=== PATIENT | female | born 1950 | race African-American/Black ===

== ENCOUNTER 2019-10-15 07:24 | Day surgery (SDC) | payer OTHER ==
[2019-10-07 09:28] VITALS: BMI 25.9
--- NOTE | 2019-10-07 11:33 | HP ---
Admitting History and Physical - Primary Care Physician PCP: Tyree Broussard - Admission Chief Complaint: Right breast phylloides tumor History of Present Illness: 69 year old postmenapausal female S/P mutiple breast biopsies and F/H of breast cancer.Screening mammogram showed right upper inner quadrant demnsity and Us showed .6cm mass at 1:00 2 cm FN. Birad 4. US core biopsy right breast 1:00 2018 showed dense nodular stromal fibrosis and calcifications. Addendum showed that this results may not be congruent with the imaging. History Source: Patient Limitations to Obtaining History: No Limitations - Past Medical History Cardiovascular: Yes: HTN Gastrointestinal: Yes: GERD ...: No - Past Surgical History Past Surgical History: Yes: Cholecystectomy (lap 2015), Hysterectomy (due to fibroids at age 41) Additional Past Surgical History: mutiple bilateral breast bxs - Smoking History Smoking history: Current every day smoker Have you smoked in the past 12 months: Yes Aproximately how many cigarettes per day: 10 - Alcohol/Substance Use Hx Alcohol Use: Yes (SOCIALLY) Home Medications - Allergies Allergies/Adverse Reactions: Allergies Allergy/AdvReac Type Severity Reaction Status Date / Time No Known Drug Allergies Allergy Verified 10/07/19 09:18 - Home Medications Home Medications: Ambulatory Orders Hydrochlorothiazide 25 mg PO DAILY 10/07/19 Quinapril HCl [Accupril] 40 mg PO DAILY 10/07/19 Family Medical History Family Hx Cancer: Mother (gastric ca), Father (lung ca46), Brother (prostate ca 60) Other Family History: pat aunt breast ca 55 Physical Examination Constitutional: Yes: Well Nourished, No Distress Breast(s): Yes: Other (diffusely nodular bilaterally no palpable masses or adenopathy bilaterally post bx changes right breast) Problem List - Problems (1) Benign phyllodes tumor of right breast Code(s): D24.1 - BENIGN NEOPLASM OF RIGHT BREAST Assessment/Plan Right breast wide excision with Us localization
[2019-10-15] MEDS ORDERED: MIDAZOLAM HCL 2 MG/2 ML SINGLE DOSE VIAL ONE (11:12)
[2019-10-15] MEDS ORDERED: ONDANSETRON 4 MG/2 ML VIAL ONE ×2 (11:18→12:35)
[2019-10-15] MEDS ORDERED: DEXAMETHASONE SOD PHOSPHATE 4 MG/1 ML VIAL ONE (11:18)
[2019-10-15] MEDS ORDERED: PROPOFOL 20 ML ONE (11:18)
[2019-10-15] MEDS ORDERED: BUPIVACAINE HCL/PF 0.5% (5MG/ML) 10 ML VIAL ONE (11:38)
[2019-10-15] MEDS ORDERED: KETOROLAC TROMETHAMINE 30 MG/1 ML VIAL ONE (12:13)
[2019-10-15] MEDS ORDERED: ONDANSETRON 4 MG/2 ML VIAL IVPUSH PRN (12:19)
[2019-10-15] MEDS ORDERED: KETOROLAC TROMETHAMINE 30 MG/1 ML VIAL IVPUSH PRN (12:19)
[2019-10-15] MEDS ORDERED: oxyCODONE HCL 5 MG TABLET PO PRN ×2 (12:20)
[2019-10-15] MEDS ORDERED: LACTATED RINGERS SOLUTION 1,000 ML IV SCH (12:30)
[2019-10-15] MEDS ORDERED: DEXTROSE 5%-0.45% SALINE 1,000 ML IV SCH (12:30)
[2019-10-15 13:51] VITALS: TEMP 97.5
[2019-10-15] MEDS ORDERED: oxyCODONE HCL 5 MG TABLET ONE (13:55)
[2019-10-15 15:40] VITALS: BP 116/72; PULSE 52
--- NOTE | 2019-10-21 10:50 | PATH ---
Surgical Pathology Report Patient Name: JERONIMO MOORE [facility]. Rec. #: [id number] /Age/Gender: 1950 (Age: 69) / F Account: [id number] Location: [facility] Taken: 10/15/2019 Received: 10/15/2019 Reported: 10/21/2019 Physicians: Tyree Broussard M.D. Specimen(s) Received RIGHT BREAST BIOPSY Clinical History Right breast biopsy Final Diagnosis BREAST, RIGHT, EXCISIONAL, BIOPSY: BENIGN BREAST TISSUE SHOWING FIBROCYSTIC CHANGES INCLUDING PREDOMINANTLY STROMAL FIBROSIS WITH FOCAL CYSTIC APOCRINE METAPLASIA AND USUAL DUCTAL HYPERPLASIA (UDH); FEW CALCIFICATIONS ARE PRESENT IN ASSOCIATION WITH BENIGN GLANDULAR PARENCHYMA. SMALL FIBROADENOMA (7 MM). PRIOR BIOPSY SITE CHANGES ARE PRESENT. Note: See also prior core biopsy from outside institution ([id number];08/07/19, our review ). Electronically Signed Janet Almaraz M.D. Gross Description Received in formalin, labeled "right breast biopsy," is a 5.0 x 3.1 x 3.0 cm. wilkerson-yellow, irregular, portion of fibroadipose tissue with a needle localization wire present. There is an undesignated short suture presumably marking the superior aspect and an undesignated long suture presumably marking the lateral aspect of the specimen. There is no skin present. The specimen is inked as follows: superior and lateral blue; inferior green; medial yellow; anterior red; deep black. The specimen is serially sectioned from lateral to medial. Sectioning reveals a 1.8 x 1.5 x 1.0 cm ill-defined focus of firm fibrosis with central hemorrhage, consistent with a previous biopsy site. The firm fibrosis focally abuts the superior and deep margins. Entirely submitted in 20 cassettes as follows: 1-6-focus of firm fibrosis (previous biopsy site) sequentially submitted from lateral to medial (each with superior and deep margins); 7-lateral margin; 8-medial margin; 9-inferior margin; 10-anterior margin; 11-20- remaining tissue. Time to formalin fixation: 5 minutes Total formalin fixation time: Approximately 30 hours. DL/10/16/2019 saudi/10/16/2019
--- NOTE | 2019-12-06 20:34 | OP ---
DATE OF OPERATION: 10/15/2019 PREOPERATIVE DIAGNOSIS: Right mammographically localized breast biopsy. POSTOPERATIVE DIAGNOSIS: Right mammographically localized breast biopsy. ANESTHESIA: IV sedation with local. ATTENDING SURGEON: Tyree Broussard MD ESTIMATED BLOOD LOSS: Minimal. COMPLICATIONS: None. DESCRIPTION OF PROCEDURE: Patient was made aware of the risks and benefits of the procedure and consented. She was placed in the supine position after going to radiology where a needle and a wire were placed next to the index lesion. After IV sedation was administered, the site was prepped and draped in usual sterile fashion. Next, 1% lidocaine mixed with 0.5% ropivacaine was used for local anesthesia. Curvilinear incision was made next to the wire using electrocautery. Thin skin flaps were made, and needle was drawn to the puncture site and the wire to the wound. Tissues around the wire were then sharply excised and submitted with a short suture superior, long suture lateral. Specimen radiograph confirmed the presence of the index lesion. The wound was copiously irrigated with normal saline. Hemostasis maintained by electrocautery. The wound was then closed with deep interrupted 3-0 Vicryl, followed by a running subcuticular 4-0 Monocryl. Steri-Strips, sterile dressing, and a compression bra were then applied. The patient, having tolerated the procedure well, was transferred to the recovery room in excellent condition. TYREE BROUSSARD M.D. [id number]
== END 2019-10-15 15:15 | disposition home or self-care (01) ==
LOC: FASU 07:24
PROVIDERS: ATTEND Surgery Surgical Oncology
PROC: 0HBT0ZX Excision of Right Breast, Open Approach, Diagnostic (ICD-10-PCS; principal; 2019-10-15 11:39)
DX: D24.1 Benign neoplasm of right breast (principal); N60.31 Fibrosclerosis of right breast; N60.11 Diffuse cystic mastopathy of right breast; N60.81 Other benign mammary dysplasias of right breast; N64.89 Other specified disorders of breast; I10 Essential (primary) hypertension; Z80.3 Family history of malignant neoplasm of breast; K21.9 Gastro-esophageal reflux disease without esophagitis
CPT/HCPCS: 19281; 76098-TC-FY; 88307-TC; 94760